=== PATIENT | male | born 1970 | race American Indian/Alaskan Native ===

== ENCOUNTER 2019-12-17 05:23 | Emergency (ER) | payer MEDICAID ==
[2019-12-17 06:28] LABS: Basophils % (Auto) 0.6 % (0.0-1.8); Eosinophils # (Auto) 0.1 K/mm3 (0.0-0.4); Eosinophils % (Auto) 0.7 % (0.0-4.3); Hematocrit 45.7 % (35.5-45.6); Hemoglobin 15.7 gm/dl (11.8-15.2); Lymphocytes # (Auto) 2.6 K/mm3 (1.2-5.4); Lymphocytes % (Auto) 32.2 % (13.4-35.0); Mean Corpuscular HGB Conc 34 % (32-34); Mean Corpuscular Volume 83 fl (84-94); Monocytes # (Auto) 0.4 K/mm3 (0.0-0.8); Monocytes % (Auto) 4.5 % (0.0-7.3); Platelet Count 268 K/mm3 (140-440); Red Cell Distribution Width 15.9 % (13.2-15.2)
[2019-12-17 06:45] LABS: Blood Urea Nitrogen 21 mg/dL (9-20); Calcium 9.9 mg/dL (8.4-10.2); Hemolysis Index 30
[2019-12-17 06:49] LABS: BUN/Creatinine Ratio 42
[2019-12-17] MEDS ORDERED: BACLOFEN 10 MG TAB PO ONE (08:58)
[2019-12-17] MEDS ORDERED: GABAPENTIN 300 MG CAP PO ONE (08:58)
[2019-12-17] MEDS ORDERED: oxyCODONE /ACETAMINOPHEN 5-325MG TAB PO ONE (08:58)
--- NOTE | 2019-12-17 10:56 | Emergency Department Report ---
ED General Adult HPI - General Chief complaint: Medical Clearance Stated complaint: BILATERAL LEG PAIN/OFF MEDS Time Seen by Provider: 12/17/19 08:58 Source: patient, EMS Mode of arrival: Wheelchair Limitations: Physical Limitation - History of Present Illness Initial comments: Patient is a 49-year-old F Afghan male with a past medical history of diabetes CHF hypertension and HIV who is presenting with what he believes is a need for medical clearance. Patient is living at [facility] and he wanted to leave to go to an eye exam. The center is explicitly told the patient that if he left he would not be able to return due to strict rules regarding leaving the facility due to the COVID-19 pandemic. Patient signed affidavit that he understood this and he left. Patient returned wanting back into the facility and he was told that he could not come back in. Police were called and they reviewed the affidavit that the patient signed and told that he would be unable to come to the facility. Patient called his supervisor assembly and packing and was told to come to the hospital to get admitted medically cleared to return. Patient came stating he just needed medical clearance. He is states that he has not had any of his medications for his chronic leg pain since yesterday at 1 PM. The only change in his medical status is that he was in pain from not taking his medications. Severity scale (0 -10): 7 - Related Data Home Medications Medication Instructions Recorded Confirmed Last Taken Acetaminophen [Acetaminophen TAB] 500 mg PO Q6HR 02/07/18 02/07/18 Unknown Ascorbic Acid 500 mg PO DAILY 02/07/18 02/07/18 Unknown Baclofen 20 mg PO BID 02/07/18 02/07/18 Unknown Darunavir [Prezista] 800 mg PO QDAY 02/07/18 02/07/18 Unknown Emtricitabine/Tenofov Alafenam 1 each PO DAILY 02/07/18 02/07/18 Unknown [Descovy 200-25 mg (Nf)] FLUoxetine [PROzac] 20 mg PO QDAY 02/07/18 02/07/18 Unknown Famotidine [Heartburn Prevention] 20 mg PO DAILY 02/07/18 02/07/18 Unknown Ferrous Sulfate [Feosol 325 MG tab] 325 mg PO QDAY 02/07/18 02/07/18 Unknown Fluticasone [Flonase] 1 spray NS QDAY 02/07/18 02/07/18 Unknown Gabapentin [Neurontin] 600 mg PO QID 02/07/18 02/07/18 Unknown Magnesium Hydroxide [Milk of 30 ml PO Q24HR 02/07/18 02/07/18 Unknown Magnesia] OLANZapine [Zyprexa Zydis] 20 mg PO DAILY 02/07/18 02/07/18 Unknown Calhoun-3/Dha/Epa/Fish Oil [[place] 3 1 each PO BID 02/07/18 02/07/18 Unknown 500 Softgel] Oxycodone HCl/Acetaminophen 1 each PO Q6HR PRN 02/07/18 02/07/18 Unknown [Percocet 7.5/325 mg] Ritonavir [Norvir] 100 mg PO DAILY 02/07/18 02/07/18 Unknown Thiamine HCl [Vitamin B-1] 100 mg PO DAILY 02/07/18 02/07/18 Unknown Warfarin Sodium [Coumadin] 6 mg PO QHS 02/07/18 02/07/18 Unknown Previous Rx's Medication Instructions Recorded Last Taken Type cephALEXin [Keflex] 500 mg PO Q12HR #10 cap 02/11/18 Unknown Rx Allergies Allergy/AdvReac Type Severity Reaction Status Date / Time No Known Allergies Allergy Unverified 02/07/18 11:29 ED Review of Systems ROS: Stated complaint: BILATERAL LEG PAIN/OFF MEDS Other details as noted in HPI Comment: All other systems reviewed and negative ED Past Medical Hx - Past Medical History Previous Medical History?: Yes Hx Congestive Heart Failure: Yes Hx Diabetes: Yes Hx Asthma: No Hx COPD: No Hx HIV: Yes - Surgical History Past Surgical History?: No - Social History Smoking Status: Current Every Day Smoker Substance Use Type: None - Medications Home Medications: Home Medications Medication Instructions Recorded Confirmed Last Taken Type Acetaminophen [Acetaminophen TAB] 500 mg PO Q6HR 02/07/18 02/07/18 Unknown History Ascorbic Acid 500 mg PO DAILY 02/07/18 02/07/18 Unknown History Baclofen 20 mg PO BID 02/07/18 02/07/18 Unknown History Darunavir [Prezista] 800 mg PO QDAY 02/07/18 02/07/18 Unknown History Emtricitabine/Tenofov Alafenam 1 each PO DAILY 02/07/18 02/07/18 Unknown History [Descovy 200-25 mg (Nf)] FLUoxetine [PROzac] 20 mg PO QDAY 02/07/18 02/07/18 Unknown History Famotidine [Heartburn Prevention] 20 mg PO DAILY 02/07/18 02/07/18 Unknown History Ferrous Sulfate [Feosol 325 MG tab] 325 mg PO QDAY 02/07/18 02/07/18 Unknown History Fluticasone [Flonase] 1 spray NS QDAY 02/07/18 02/07/18 Unknown History Gabapentin [Neurontin] 600 mg PO QID 02/07/18 02/07/18 Unknown History Magnesium Hydroxide [Milk of 30 ml PO Q24HR 02/07/18 02/07/18 Unknown History Magnesia] OLANZapine [Zyprexa Zydis] 20 mg PO DAILY 02/07/18 02/07/18 Unknown History Calhoun-3/Dha/Epa/Fish Oil [[place]oun 3 1 each PO BID 02/07/18 02/07/18 Unknown History 500 Softgel] Oxycodone HCl/Acetaminophen 1 each PO Q6HR PRN 02/07/18 02/07/18 Unknown History [Percocet 7.5/325 mg] Ritonavir [Norvir] 100 mg PO DAILY 02/07/18 02/07/18 Unknown History Thiamine HCl [Vitamin B-1] 100 mg PO DAILY 02/07/18 02/07/18 Unknown History Warfarin Sodium [Coumadin] 6 mg PO QHS 02/07/18 02/07/18 Unknown History cephALEXin [Keflex] 500 mg PO Q12HR #10 cap 02/11/18 Unknown Rx ED Physical Exam - General Limitations: Physical Limitation General appearance: alert, in no apparent distress - Head Head exam: Present: atraumatic, normocephalic - Eye Eye exam: Present: normal appearance, PERRL, EOMI - ENT ENT exam: Present: mucous membranes moist - Neck Neck exam: Present: normal inspection - Respiratory Respiratory exam: Present: normal lung sounds bilaterally. Absent: respiratory distress, wheezes, rales, rhonchi - Cardiovascular Cardiovascular Exam: Present: regular rate, normal rhythm. Absent: systolic murmur, diastolic murmur, rubs, gallop - GI/Abdominal GI/Abdominal exam: Present: soft, normal bowel sounds. Absent: distended, tenderness, guarding, rebound - Rectal Rectal exam: Present: deferred - Extremities Exam Extremities exam: Present: normal inspection, other (Chronic bilateral lower extremity swelling) - Back Exam Back exam: Present: normal inspection - Neurological Exam Neurological exam: Present: alert, oriented X3 - Psychiatric Psychiatric exam: Present: normal affect, normal mood - Skin Skin exam: Present: warm, dry, intact, normal color. Absent: rash ED Course Vital Signs 12/17/19 05:31 Temperature 98.7 F Pulse Rate 77 Respiratory 16 Rate Blood Pressure 128/84 O2 Sat by Pulse 93 Oximetry ED Medical Decision Making - Lab Data Result diagrams: 12/17/19 05:50 12/17/19 05:50 Lab Results 12/17/19 12/17/19 12/17/19 Range/Units 05:50 05:50 05:50 WBC (4.5-11.0) K/mm3 RBC (3.65-5.03) M/mm3 Hgb (11.8-15.2) gm/dl Hct (35.5-45.6) % MCV (84-94) fl MCH (28-32) pg MCHC (32-34) % RDW (13.2-15.2) % Plt Count (140-440) K/mm3 Lymph % (Auto) (13.4-35.0) % [place] % (Auto) (0.0-7.3) % Eos % (Auto) (0.0-4.3) % Baso % (Auto) (0.0-1.8) % Lymph # (Auto) (1.2-5.4) K/mm3 [place] # (Auto) (0.0-0.8) K/mm3 Eos # (Auto) (0.0-0.4) K/mm3 Baso # (Auto) (0.0-0.1) K/mm3 Seg Neutrophils % (40.0-70.0) % Seg Neutrophils # (1.8-7.7) K/mm3 Sodium 143 (137-145) mmol/L Potassium 4.4 (3.6-5.0) mmol/L Chloride 102.4 (98-107) mmol/L Carbon Dioxide 25 (22-30) mmol/L Anion Gap 20 mmol/L BUN 21 H (9-20) mg/dL Creatinine 0.5 L (0.8-1.3) mg/dL Estimated GFR > 60 ml/min BUN/Creatinine Ratio 42 % Glucose 134 H (75-100) mg/dL Calcium 9.9 (8.4-10.2) mg/dL Salicylates < 0.3 L (2.8-20.0) mg/dL Acetaminophen 5.0 L (10.0-30.0) ug/mL Plasma/Serum Alcohol (0-0.07) % 12/17/19 12/17/19 Range/Units 05:50 05:50 WBC 8.2 (4.5-11.0) K/mm3 RBC 5.50 H (3.65-5.03) M/mm3 Hgb 15.7 H (11.8-15.2) gm/dl Hct 45.7 H (35.5-45.6) % MCV 83 L (84-94) fl MCH 29 (28-32) pg MCHC 34 (32-34) % RDW 15.9 H (13.2-15.2) % Plt Count 268 (140-440) K/mm3 Lymph % (Auto) 32.2 (13.4-35.0) % [place] % (Auto) 4.5 (0.0-7.3) % Eos % (Auto) 0.7 (0.0-4.3) % Baso % (Auto) 0.6 (0.0-1.8) % Lymph # (Auto) 2.6 (1.2-5.4) K/mm3 [place] # (Auto) 0.4 (0.0-0.8) K/mm3 Eos # (Auto) 0.1 (0.0-0.4) K/mm3 Baso # (Auto) 0.0 (0.0-0.1) K/mm3 Seg Neutrophils % 62.0 (40.0-70.0) % Seg Neutrophils # 5.1 (1.8-7.7) K/mm3 Sodium (137-145) mmol/L Potassium (3.6-5.0) mmol/L Chloride (98-107) mmol/L Carbon Dioxide (22-30) mmol/L Anion Gap mmol/L BUN (9-20) mg/dL Creatinine (0.8-1.3) mg/dL Estimated GFR ml/min BUN/Creatinine Ratio % Glucose (75-100) mg/dL Calcium (8.4-10.2) mg/dL Salicylates (2.8-20.0) mg/dL Acetaminophen (10.0-30.0) ug/mL Plasma/Serum Alcohol < 0.01 (0-0.07) % - Medical Decision Making Patient has been medically cleared. After medical clearance the facility stated that he still would not be unable to return to the facility. A list of shelters was given to the patient he also has some family that he was going to call. Critical care attestation.: If time is entered above; I have spent that time in minutes in the direct care of this critically ill patient, excluding procedure time. ED Disposition Clinical Impression: Homelessness Disposition: DC-01 TO HOME OR SELFCARE Is pt being admited?: No Does the pt Need Aspirin: No Condition: Stable Referrals: VENKAT ESTRADA MD [Primary Care Provider] - 3-5 Days Time of Disposition: 10:56
[2019-12-17 11:27] VITALS: BP 143/86
== END 2019-12-17 11:44 | disposition home or self-care (01) ==
LOC: ED 05:23
DX: M79.604 Pain in right leg (principal); M79.605 Pain in left leg; I50.9 Heart failure, unspecified; E11.9 Type 2 diabetes mellitus without complications; F17.200 Nicotine dependence, unspecified, uncomplicated; Z59.0 Homelessness; Z21 Asymptomatic human immunodeficiency virus [HIV] infection status; Z79.899 Other long term (current) drug therapy
CPT/HCPCS: 36415; 80048; 80320; 85025; G0480